=== PATIENT | female | born 1945 | race Caucasian/White ===

== ENCOUNTER 2025-08-27 15:22 | Outpatient (CLI) | payer MEDICARE, SELFPAY ==
--- NOTE | ~2025-08-27 | MM_ITS ---
EXAMINATION: MM screening darien BI w ld INDICATION: Asymptomatic, referred for screening mammogram COMPARISON: None available TECHNIQUE: Digital Breast Tomosynthesis CC, MLO views of Both breasts were obtained with computer-aided detection to assist in interpretation of the study. FINDINGS: There are scattered areas of fibroglandular density. There is a focal asymmetry in the superior central right breast at middle third. There is a focal asymmetry in the retroareolar central left breast at posterior third. There is a focal asymmetry in the inferior medial left breast at anterior third. Elsewhere, there are no mammographic features of malignancy. IMPRESSION: 1. Bilateral breast focal asymmetries. RECOMMENDATION: Bilateral breast Diagnostic mammogram with true lateral, appropriate spot compression views and an ultrasound if needed. BI-RADS Category 0: Incomplete: Needs additional imaging evaluation. Reviewed, dictated and finalized at location B. [employer] IMPRESSION: 1. Bilateral breast focal asymmetries. RECOMMENDATION: Bilateral breast Diagnostic mammogram with true lateral, appropriate spot compr ession views and an ultrasound if needed. BI-RADS Category 0: Incomplete: Needs additional imaging evaluation.
== END 2025-08-27 15:23 | disposition home or self-care (01) ==
LOC: MICIMG 15:23
PROVIDERS: PCP Physician Assistant; Visit Provider Physician Assistant
DX: Z12.31 Encounter for screening mammogram for malignant neoplasm of breast (principal); R92.8 Other abnormal and inconclusive findings on diagnostic imaging of breast
CPT/HCPCS: 77063; 77067